=== PATIENT | male | born 1970 | race Two or more races ===

== ENCOUNTER 2024-05-07 05:13 | Day surgery (SDC) | payer OTHER ==
[2024-05-01 13:12] VITALS: BP 148/88
[~2024-05-07] VITALS: Ht 182.9 cm; Wt 113.4 kg
[~2024-05-07 05:13] MED LIST: COZAAR25 MG PO; GLUMETZA500 MG PO; ZOLOFT25 MG PO
[2024-05-07] MEDS ORDERED: HEMOSTATIC MATRIX 1 KIT KIT TOP ONE (08:00)
[2024-05-07] MEDS ORDERED: POVIDONE-IODINE 118 ML BOTT TOP ONE (08:00)
[2024-05-07] MEDS ORDERED: DIBUCAINE 30 GM TUBE RECTAL ONE (08:00)
[2024-05-07] MEDS ORDERED: LIDOCAINE HCL 1%/EPINEPHRINE 20ML VIAL IJ ONE (08:00)
[2024-05-07] MEDS ORDERED: CEFTRIAXONE SODIUM 2,000 MG VIAL IV ONE (08:00)
[2024-05-07] MEDS ORDERED: BUPIVACAINE HCL 30 ML VIAL IJ ONE (08:00)
[2024-05-07] MEDS ORDERED: METRONIDAZOLE/SODIUM CHLORIDE 500 MG/100 ML PIGGYBACK IV ONE (08:00)
== END 2024-05-07 13:10 | disposition home or self-care (01) ==
LOC: CIR.AMB 05:13
PROVIDERS: ATTEND Colon & Rectal Surgery
DX: K60.30 Anal fistula, unspecified (principal); K52.89 Other specified noninfective gastroenteritis and colitis